=== PATIENT | female | born 1970 | race Caucasian/White ===

== ENCOUNTER 2018-07-19 09:52 | Outpatient (CLI) | payer OTHER | END 2018-07-19 09:57 | disposition home or self-care (01) | LOC: EDBD 09:52 → SONOGRAMA 09:52 | DX: E04.1 Nontoxic single thyroid nodule (principal) ==

== ENCOUNTER 2024-05-02 15:29 | Outpatient (CLI) | payer OTHER | END 2024-05-02 15:31 | disposition home or self-care (01) | LOC: SONOGRAMA 15:29 | PROVIDERS: ATTEND Pathology Anatomic Pathology & Clinical Pathology | DX: R59.0 Localized enlarged lymph nodes (principal); C73 Malignant neoplasm of thyroid gland ==